=== PATIENT | male | born 1940 | race Caucasian/White ===

== ENCOUNTER 2018-04-03 07:30 | Emergency (ER) | payer MEDICARE ==
[~2018-04-03] VITALS: Ht 180.3 cm; Wt 83.9 kg
[2018-04-03] MEDS ORDERED: FLOMAX0.4 MG PO (07:46)
[2018-04-03] MEDS ORDERED: ZESTORETIC 10-1 EACH PO (07:46)
[2018-04-03] MEDS ORDERED: BLOOD THINNER (07:47)
[2018-04-03 07:57] LABS: URINE BILIRUBIN NEGATIVE (Negative); URINE BLOOD NEGATIVE (Negative); URINE CLARITY CLEAR; URINE COLOR YELLOW; URINE GLUCOSE-RANDOM NEGATIVE (Negative); URINE KETONES NEGATIVE (Negative); URINE LEUKOCYTES-REFLEX NEGATIVE (Negative); URINE NITRITE-REFLEX NEGATIVE (Negative); URINE PROTEIN NEGATIVE (Negative); URINE SPECIFIC GRAVITY 1.025 (1.005-1.030); URINE UROBILINOGEN 0.2 E.U./dl (0.2-1.0)
[2018-04-03 08:08] LABS: ABSOLUTE EOSINOPHILS 0.1 thou/uL (0.0-0.7); ABSOLUTE LYMPHOCYTES 0.9 thou/uL (0.8-5.3); ABSOLUTE MONOCYTES 0.6 thou/uL (0.0-1.2); BASOPHILS 0.6 %; HEMATOCRIT 44.1 % (42.0-52.0); HEMOGLOBIN 15.4 gm/dL (14.0-18.0); LYMPHOCYTES 13.5 %; MCH 33.5 pg (26.0-34.0); MCHC 34.9 g/dL (28.0-37.0); NUCLEATED RBCS 0 /100WBC; PLATELET COUNT* 216 thou/uL (150-400); POLYS 75.9 %; RBC 4.59 mil/uL (4.50-6.00); RDW-CV 12.7 % (10.5-14.5); WBC 6.6 thou/uL (4.0-11.0)
[2018-04-03 08:14] LABS: CALCIUM 9.4 mg/dL (8.5-10.1); CREATININE 1.8 mg/dL (0.6-1.3); POTASSIUM 3.5 mmol/L (3.5-5.1)
[2018-04-03 08:18] LABS: ALBUMIN 3.7 g/dL (3.4-5.0); TOTAL BILIRUBIN 0.7 mg/dL (<0.1-1.0); TOTAL PROTEIN 7.1 g/dL (6.4-8.2)
[2018-04-03] MEDS ORDERED: IBUPROFEN 800800 M1 PO (10:22)
[2018-04-03] MEDS ORDERED: HYDROCODONE-AP1 EAC6 PO (10:22)
[2018-04-03 10:40] VITALS: BP 146/86
== END 2018-04-03 10:41 | disposition home or self-care (01) ==
LOC: M.ERS 07:30
PROVIDERS: Personal Emergency Response Attendant
DX: R10.32 Left lower quadrant pain (principal); I10 Essential (primary) hypertension

== ENCOUNTER 2018-04-06 05:20 | Emergency (ER) | payer MEDICARE ==
[~2018-04-06] VITALS: Ht 180.3 cm; Wt 86.6 kg
[~2018-04-06 05:20] MED LIST: BLOOD THINNER; FLOMAX0.4 MG PO; HYDROCODONE-AP1 EAC6 PO; IBUPROFEN 800800 M1 PO; ZESTORETIC 10-1 EACH PO
[2018-04-06 06:28] LABS: HEMATOCRIT 44.8 % (42.0-52.0); HEMOGLOBIN 15.6 gm/dL (14.0-18.0); MCH 33.3 pg (26.0-34.0); MCHC 34.9 g/dL (28.0-37.0); MCV 95.3 fL (80.0-100.0); MPV 9.2 fl. (7.2-11.1); NUCLEATED RBCS 0 /100WBC; PLATELET COUNT* 198 thou/uL (150-400); RDW-CV 12.9 % (10.5-14.5); WBC 8.7 thou/uL (4.0-11.0)
[2018-04-06 06:30] LABS: URINE BILIRUBIN NEGATIVE (Negative); URINE BLOOD NEGATIVE (Negative); URINE CLARITY CLEAR; URINE COLOR YELLOW; URINE GLUCOSE-RANDOM NEGATIVE (Negative); URINE KETONES NEGATIVE (Negative); URINE LEUKOCYTES-REFLEX NEGATIVE (Negative); URINE NITRITE-REFLEX NEGATIVE (Negative); URINE PROTEIN NEGATIVE (Negative); URINE UROBILINOGEN 0.2 E.U./dl (0.2-1.0)
[2018-04-06 06:30] LABS: ANION GAP 7 mmol/L (7-16); BUN 24 mg/dL (7-18); CALCIUM 8.9 mg/dL (8.5-10.1); CHLORIDE 102 mmol/L (98-107); CO2 31 mmol/L (21-32); CREATININE 1.4 mg/dL (0.6-1.3); GLUCOSE 146 mg/dL (70-99); SODIUM 140 mmol/L (136-145)
[2018-04-06 06:37] LABS: ALBUMIN 3.6 g/dL (3.4-5.0); ALKALINE PHOSPHATASE 82 U/L (46-116); LIPASE 91 U/L (73-393); SGOT 20 U/L (15-37); SGPT 26 U/L (30-65); TOTAL BILIRUBIN 0.5 mg/dL (<0.1-1.0); TOTAL PROTEIN 7.1 g/dL (6.4-8.2); TROPONIN-I LEVEL <0.06 ng/mL (<0.06)
[2018-04-06 06:49] LABS: ABSOLUTE EOSINOPHILS 0.1 thou/uL (0.0-0.7); ABSOLUTE LYMPHOCYTES 0.7 thou/uL (0.8-5.3); ABSOLUTE MONOCYTES 0.3 thou/uL (0.0-1.2); ABSOLUTE NEUTROPHILS 7.6 thou/uL (1.6-8.1); PLATELET ESTIMATE ADEQUATE
[2018-04-06] MEDS ORDERED: BENTYL 10 MG CA10 M1 PO (07:51)
[2018-04-06 08:06] VITALS: BP 179/86
--- NOTE | 2018-04-06 10:54 | EKG ---
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[facility] : 1940 Requested By: Sherman Delgado Order Number: [id number] MD: Caesar Acosta Measurements Intervals [place] Rate: 69 P: -1 IA: 173 QRS: 23 QRSD: 93 T: 21 QT: 369 QTc: 396 Interpretive Statements Sinus rhythm consider Inferior infarct, old Baseline wander in lead(s) V3 No previous ECG available for comparison Electronically Signed On 04-06-2018 10:54:42 CDT by Caesar Acosta [email or web address] <ELECTRONICALLY SIGNED> By: Caesar Acosta MD, [facility] 04/06/18 1054 [id number] Caesar Acosta MD, FACC /EPI
== END 2018-04-06 08:07 | disposition home or self-care (01) ==
LOC: M.ERS 05:20
PROVIDERS: Emergency Medicine Emergency Medical Services
DX: R10.32 Left lower quadrant pain (principal); I10 Essential (primary) hypertension

== ENCOUNTER 2018-04-17 00:32 | Emergency (ER) | payer MEDICARE ==
[~2018-04-17] VITALS: Ht 180.3 cm; Wt 84.8 kg
[~2018-04-17 00:32] MED LIST changes: +BENTYL 10 MG CA10 M1 PO
[2018-04-17] MEDS ORDERED: MEDROLDOSEPACK PO (01:17)
[2018-04-17] MEDS ORDERED: FLEXERIL PO (01:17)
[2018-04-17 01:21] VITALS: BP 132/77
== END 2018-04-17 01:23 | disposition home or self-care (01) ==
LOC: M.ERS 00:32
DX: M54.5 Low back pain (principal); M79.605 Pain in left leg; I10 Essential (primary) hypertension

== ENCOUNTER 2019-12-03 11:15 | Emergency (ER) | payer MEDICARE ==
[~2019-12-03] VITALS: Ht 180.3 cm; Wt 81.7 kg
[~2019-12-03 11:15] MED LIST changes: +FLEXERIL PO; +MEDROLDOSEPACK PO
[2019-12-03] MEDS ORDERED: PROSCAR 5MG TABL5 M1 PO (11:42)
[2019-12-03 12:40] VITALS: BP 200/98
== END 2019-12-03 12:41 | disposition left against medical advice (07) ==
LOC: M.ERS 11:15
DX: R20.2 Paresthesia of skin (principal); R20.0 Anesthesia of skin; F41.8 Other specified anxiety disorders; I10 Essential (primary) hypertension

== ENCOUNTER 2020-08-19 10:12 | Emergency (ER) | payer MEDICARE ==
[~2020-08-19] VITALS: Ht 180.3 cm; Wt 76.7 kg
[~2020-08-19 10:12] MED LIST changes: +PROSCAR 5MG TABL5 M1 PO
[2020-08-19] MEDS ORDERED: BLOOD THINNER (10:18)
[2020-08-19 11:18] LABS: HEMATOCRIT 44.1 % (42.0-52.0); HEMOGLOBIN 15.4 gm/dL (14.0-18.0); MCH 32.8 pg (26.0-34.0); MCHC 34.9 g/dL (28.0-37.0); MPV 9.4 fl. (7.2-11.1); NUCLEATED RBCS 0 /100WBC; PLATELET COUNT* 180 thou/uL (150-400); RBC 4.69 mil/uL (4.50-6.00); RDW-CV 13.3 % (10.5-14.5); WBC 19.8 thou/uL (4.0-11.0)
[2020-08-19 11:20] LABS: URINE BLOOD 3+ (Negative); URINE CLARITY CLEAR; URINE COLOR YELLOW; URINE GLUCOSE-RANDOM NEGATIVE (Negative); URINE KETONES NEGATIVE (Negative); URINE LEUKOCYTES-REFLEX NEGATIVE (Negative); URINE NITRITE-REFLEX NEGATIVE (Negative); URINE PROTEIN 2+ (Negative); URINE SPECIFIC GRAVITY >= 1.030 (1.005-1.030); URINE UROBILINOGEN 0.2 E.U./dl (0.2-1.0)
[2020-08-19 11:29] LABS: APTT 24.7 Seconds (25.0-31.3); INR 1.2; PROTIME 12.6 Seconds (9.20-11.50)
[2020-08-19 11:33] LABS: CRYSTALS None Seen /LPF (None Seen); HYALINE CASTS 0-3 Few /LPF (None Seen); ICTOTEST (BILI CONFIRMATORY) Negative (Negative); MUCUS 0-3 Light strn/LPF (None Seen); SQUAMOUS 4-10 Moderate /LPF (0-3); URINE BILIRUBIN 1+ (Negative); URINE RBC 0-2 Rare /HPF (0-2); URINE WBC-REFLEX 6-15 Few /HPF (0-5)
[2020-08-19 11:36] LABS: CALCIUM 9.1 mg/dL (8.5-10.1); CREATININE 1.5 mg/dL (0.6-1.3)
[2020-08-19 11:51] LABS: ABSOLUTE LYMPHOCYTES 0.6 thou/uL (0.8-5.3); ABSOLUTE MONOCYTES 0.8 thou/uL (0.0-1.2); ABSOLUTE NEUTROPHILS 18.4 thou/uL (1.6-8.1); PLATELET ESTIMATE ADEQUATE
[2020-08-19 12:00] LABS: ALBUMIN 3.7 g/dL (3.4-5.0); TOTAL BILIRUBIN 1.1 mg/dL (<0.1-1.0); TOTAL PROTEIN 7.1 g/dL (6.4-8.2)
[2020-08-19] MEDS ORDERED: CIPROFLOXACIN500 M1 PO (12:12)
[2020-08-19 12:21] VITALS: BP 183/78
--- NOTE | 2020-08-19 15:59 | EKG ---
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[facility] : 1940 Requested By: Franco Henry Order Number: [id number] MD: Payam Egan Measurements Intervals [place] Rate: 72 P: 30 IA: 191 QRS: 40 QRSD: 93 T: 46 QT: 385 QTc: 422 Interpretive Statements Sinus rhythm Atrial premature complexes Probable left atrial enlargement Compared to ECG 04/06/2018 06:43:20 Atrial premature complex(es) now present Myocardial infarct finding no longer present Electronically Signed On 08-19-2020 15:59:04 CDT by Payam Egan [email or web address] <ELECTRONICALLY SIGNED> By: Payam Egan MD, FACC 08/19/20 1559 1052 1052 Payam Egan MD, [facility] /EPI
== END 2020-08-19 12:21 | disposition left against medical advice (07) ==
LOC: M.ERS 10:12
PROVIDERS: Family Medicine
DX: N39.0 Urinary tract infection, site not specified (principal); R53.1 Weakness; R79.89 Other specified abnormal findings of blood chemistry; I10 Essential (primary) hypertension